=== PATIENT | female | born 1990 | race Two or more races ===

== ENCOUNTER 2020-12-13 18:07 | Emergency (ER) | payer MEDICAID, OTHER ==
[~2020-12-13] VITALS: Ht 157.5 cm; Wt 63.5 kg
[2020-12-13 18:14] VITALS: BP 125/77
== END 2020-12-13 20:16 | disposition left against medical advice (07) ==
LOC: ER 18:07
DX: R10.30 Lower abdominal pain, unspecified (principal); F12.10 Cannabis abuse, uncomplicated